=== PATIENT | male | born 1980 ===

== ENCOUNTER 2020-04-22 19:19 | Emergency (ER) | payer SELFPAY ==
[2020-04-22 19:25] VITALS: BP 124/67; PULSE 113; RESP 14; TEMP 36.9; O2SAT 97; BMI 23.7
--- NOTE | 2020-04-22 19:37 | ED_ITS ---
HPI - Overdose <JACKIE Weston - Last Filed: 04/22/20 20:40> General Chief Complaint: Toxicology Problem Stated Complaint: NOT SURE MEDICATION CLINIC SENT HIM Time Seen by Provider: 04/22/20 19:31 Source: patient Mode of arrival: Ambulatory Limitations: no limitations History of Present Illness HPI Narrative: 39yo male healthy male presents emergency department for withdrawal symptoms. Patient states that he has been taking Percocet daily for an infected tooth for the past 2 months. 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 Patient states this morning he felt like his skin was crawling, reported nausea, and had a few episodes of dry heaving and diarrhea. Patient denies full fledged vomiting, abdominal pain, chest pain, shortness of breath, dizziness, vision changes, fevers, or any other concerns. Patient denies any major medical issues, reports appendectomy approximately 10 years ago. Denies taking any other medications such as blood thinners. Patient states he occasionally smokes cigarettes denies any other drug use or excessive alcohol use. Related Data Previous Rx's Medication Instructions Recorded hydroxyzine HCl 25 mg PO TID PRN #20 tab 04/22/20 ondansetron 4 mg PO Q6H PRN #20 tab 04/22/20 Allergies Allergy/AdvReac Type Severity Reaction Status Date / Time No Known Drug Allergies Allergy Verified 04/22/20 19:25 Review of Systems <JACKIE Weston - Last Filed: 04/22/20 20:40> Review of Systems Narrative: REVIEW OF SYSTEMS: GENERAL: Denies fever or chills. HENT: No head trauma, hearing loss or sore throat. EYES: No loss of vision, double vision, eye pain, or irritation. CARDIOVASCULAR: No chest pain or syncope. RESPIRATORY: No shortness of breath or cough. GASTROINTESTINAL: Reports nausea, see HPI. GENITOURINARY: No flank pain or dysuria. MUSCULOSKELETAL: No pain, weakness, or deformities. INTEGUMENTARY: No rash, lesions, or pruritus. NEURO: No numbness or tingling. Reports ?feels like my skin is crawling, see HPI. PSYCH: No behavior or mood changes. Patient History <JACKIE Weston - Last Filed: 04/22/20 20:40> Surgical History History of appendectomy (Acute) Social History Smoking Status: Current every day smoker Smoking Status: Current every day smoker alcohol intake frequency: holidays/special occasions only Substance Use Type: does not use Exam <JACKIE Weston - Last Filed: 04/22/20 20:40> Initial Vital Signs Initial Vital Signs: Vital Signs Temperature 98.4 F 04/22/20 19:25 Pulse Rate 113 H 04/22/20 19:25 Respiratory Rate 14 04/22/20 19:25 Blood Pressure 124/67 04/22/20 19:25 Pulse Oximetry 97 04/22/20 19:25 PHYSICAL EXAMINATION: GENERAL: Well groomed, alert, and cooperative. Answers questions promptly and appropriately. Vital signs noted. HENT: Normocephalic, atraumatic. Ear canals patent. Oral mucosa is pink and moist. EYES: Conjunctiva pink, sclera white, no periorbital swelling. CHEST: Normal to inspection and without deformities. CARDIOVASCULAR: S1 and S2 sounds normal. Noted tachycardia, regular rhythm, no murmurs, clicks, or bruits. No pedal edema. RESPIRATORY: Normal respiratory rate, trachea midline, airway patent. No stridor, nasal flaring or accessory muscle use. Lungs are clear in all [place] without wheeze, rhonchi, or crackles. GASTROINTESTINAL: Bowel sounds normoactive. Abdomen is soft and non-tender. No organomegaly. MUSCULOSKELETAL: Normal gait and coordination. Equal tone and mass bilaterally. EXTREMITIES: CMS intact. Moves all extremities. SKIN: Warm, dry, soft, appropriate color for ethnicity. No lesions, rashes, or wounds. NEURO: Alert and Oriented X 3. Good coordination. No ataxia, or sensory deficits, or cognitive issues. PSYCH: Appropriate affect and mood. <Bill Alonso MD - Last Filed: 04/23/20 02:39> Initial Vital Signs Initial Vital Signs: Vital Signs Temperature 98.4 F 04/22/20 19:25 Pulse Rate 113 H 04/22/20 19:25 Respiratory Rate 14 04/22/20 19:25 Blood Pressure 124/67 04/22/20 19:25 Pulse Oximetry 97 04/22/20 19:25 Course <JACKIE Weston - Last Filed: 04/22/20 20:40> Course Course Narrative: Patient was given hydroxyzine and ondansetron or symptoms, reported he was feeling much better. Able to tolerate fluids and food. Patient reports he is ready to be discharged home. Orders Ordered: Discontinued Medications Hydroxyzine Pamoate (Vistaril) 25 mg PO NOW ONE Stop: 04/22/20 19:37 Last Admin: 04/22/20 19:43 Dose: 25 mg Documented by: BING Ondansetron HCl (Zofran Odt) 4 mg SL NOW ONE Stop: 04/22/20 19:37 Last Admin: 04/22/20 19:43 Dose: 4 mg Documented by: BING Vital Signs Vital signs: Vital Signs - 8 hr 04/22/20 19:25 04/22/20 20:28 Temperature 98.4 F Pulse Rate 113 H 93 H Respiratory Rate 14 15 Blood Pressure 124/67 121/65 Pulse Oximetry 97 99 <Bill Alonso MD - Last Filed: 04/23/20 02:39> Orders Ordered: Discontinued Medications Hydroxyzine Pamoate (Vistaril) 25 mg PO NOW ONE Stop: 04/22/20 19:37 Last Admin: 04/22/20 19:43 Dose: 25 mg Documented by: BING Ondansetron HCl (Zofran Odt) 4 mg SL NOW ONE Stop: 04/22/20 19:37 Last Admin: 04/22/20 19:43 Dose: 4 mg Documented by: BING Vital Signs Vital signs: Vital Signs - 8 hr 04/22/20 19:25 04/22/20 20:28 Temperature 98.4 F Pulse Rate 113 H 93 H Respiratory Rate 14 15 Blood Pressure 124/67 121/65 Pulse Oximetry 97 99 MDM - Overdose <JACKIE Weston - Last Filed: 04/22/20 20:40> Medical Records Attestation: I reviewed the patient's medical records. Lab Data Attestation: I reviewed the patient's lab results. MDM Narrative Medical decision making narrative: 39-year-old male presenting to the emergency department for withdrawal symptoms from taking Percocet daily for the past few months. Patient is hemodynamically stable, in no physiological distress. Reports feeling like his skin is crawling and nausea. No vomiting. Patient was given ondansetron and hydroxyzine, reported significant improvement. Able to tolerate food and fluids. Patient was discharged with prescriptions. Denies any other complaints, thus less suspicious of infection. Denies alcohol at ingestion or multiple drug ingestion. Return precautions given for new or worsening symptoms. Patient agreed to plan of care verbalized understanding. Discharge Plan Departure Patient Disposition: Home Clinical Impression: Opioid withdrawal Discharge Date/Time: 04/22/20 20:28 Instructions: DI for Opioid Addiction, DI for Prescription Opioid Use Activity Restrictions/Additional Instructions: Thank you for entrusting me with your care today. As discussed, your symptoms are most likely caused by opioid withdrawal. I have given you a prescription for nausea medication and a medication to help with the sensations that your feeling on your skin. Take these as needed over the next 5 days. Hydroxyzine can make you drowsy, do not drive when using this medication. Return emergency department for new or worsening symptoms such as uncontrollable vomiting,, chest pain, shortness of breath, or any other concerns. Prescriptions: New ondansetron 4 mg tablet,disintegrating 4 mg PO Q6H PRN (Reason: nausea and vomiting) Qty: 20 RF: 0 hydroxyzine HCl 25 mg tablet 25 mg PO TID PRN (Reason: itching) Qty: 20 RF: 0
[2020-04-22] MEDS: hydrOXYzine pamoate 25 MG CAPSULE PO (19:43)
[2020-04-22] MEDS: ONDANSETRON 4 MG ODT SL (19:43)
[2020-04-22 20:28] VITALS: BP 121/65; PULSE 93; RESP 15; O2SAT 99
--- NOTE | 2020-04-22 20:45 | PC.NURSE ---
Patient states having possible withdrawals from percocet, feels like skin is crawling, nausea, dry heaves and loose stool. Denies CP or SOB. States has been taking Percocet daily for an infected tooth for the past 2 months with last dose yesterday and PCP would not refill.
== END 2020-04-22 20:28 | disposition home or self-care (01) ==
PROVIDERS: Emergency Provider Nurse Practitioner
DX: F11.23 Opioid dependence with withdrawal (principal); R11.2 Nausea with vomiting, unspecified
CPT/HCPCS: 99283

== ENCOUNTER 2020-04-22 22:29 | Emergency (ER) | payer OTHER, SELFPAY ==
[2020-04-22 22:39] VITALS: BP 100/51; PULSE 78; RESP 24; TEMP 36.6; O2SAT 98
--- NOTE | 2020-04-23 00:20 | ED.GENADULT ---
HPI - General Adult General Chief complaint: Toxicology Problem Stated complaint: BACK FROM EARLIER NOT BETTER Time Seen by Provider: 04/23/20 00:17 Source: patient Mode of arrival: Ambulatory Limitations: no limitations History of Present Illness HPI narrative: Patient here earlier seen for opiate withdrawals. Feel better after medications given to him here. Discharged on hydroxyzine and Zofran however he missed his [employer] boat ride back to his home. He has no place to stay. Returns here because no wrist ago. Very right resumes 6:00 a.m. denies any other complaints. No new issues. Related Data Previous Rx's Medication Instructions Recorded hydroxyzine HCl 25 mg PO TID PRN #20 tab 04/22/20 ondansetron 4 mg PO Q6H PRN #20 tab 04/22/20 Allergies Allergy/AdvReac Type Severity Reaction Status Date / Time No Known Drug Allergies Allergy Verified 04/22/20 19:25 Review of Systems Review of Systems Narrative: GENERAL: Denies chills, fatigue, malaise, fever, sweats. HEENT: Denies sinus pain, ear pain, sore throat, difficulty swallowing, dizziness. Complains right lower dental pain RESPIRATORY: Denies dyspnea, cough, wheezing, hemoptysis, sputum. CARDIOVASCULAR: Denies chest pain, palpitations, orthopnea, edema, GASTROINTESTINAL: Denies nausea, vomiting, abdominal pain, diarrhea, constipation, melena. MUSCULOSKELETAL: denies weakness, joint pain, or bony pain SKIN: Denies rash, skin lesions, or other NEUROLOGIC: Denies weakness, headache PSYCHIATRIC: Has anxiety ROS Unobtainable: All systems reviewed & are unremarkable except as noted in HPI and below Patient History Surgical History History of appendectomy (Acute) Social History Smoking Status: Current every day smoker Smoking Status: Current every day smoker alcohol intake frequency: holidays/special occasions only Substance Use Type: does not use Exam Narrative Exam Narrative: GENERAL: patient appears stated age. Well-nourished, well-developed patient, in no distress, not toxic HEAD: Atraumatic. Normocephalic. ENT: There is dental caries at teeth 28, 29, 30.. No surrounding abscess or gum edema. No tongue elevation. CARDIOVASCULAR: Regular rate and rhythm without murmurs, gallops, or rubs. RESPIRATORY: Clear to auscultation. Breath sounds equal bilaterally. No wheezes, rales, or rhonchi. GASTROINTESTINAL: Abdomen soft, non-tender, nondistended. NEURO: Clear speech, awake oriented x4 Initial Vital Signs Initial Vital Signs: Vital Signs Temperature 97.9 F 04/22/20 22:39 Pulse Rate 78 04/22/20 22:39 Respiratory Rate 24 04/22/20 22:39 Blood Pressure 100/51 L 04/22/20 22:39 Pulse Oximetry 98 04/22/20 22:39 Course Course Course Narrative: pt is here bc he missed the [employer] boat. next ferry is at 6 am. he has been asking for narcotic pain medication and i offered him that i can have social media executive in the morning see him for rehab...he refused. he denies si/hi. i have given him ativan earlier to help sleep as well as hydroxizine. at 5 am he was willing to try toradol. he is not toxic. Time 6:23 a.m.. Patient has changes mind to contact [facility] for detox. We have started the process and done coronavirus screening as instructed by this center. Laboratory studies have been started. After resulted we are to call the center back and they will converse with patient by phone for screening process as well. Orders Ordered: ED Orders 04/23/20 05:26 Complete Blood Count AUTO DIFF Stat Comprehensive Metabolic Panel Stat Ethanol (ETOH) Stat 04/23/20 05:27 Urine Drug Screen, Rapid Stat Discontinued Medications Hydroxyzine Pamoate (Vistaril) 25 mg PO NOW ONE Stop: 04/23/20 00:20 Last Admin: 04/23/20 00:25 Dose: 25 mg Documented by: SHWETA Ketorolac Tromethamine (Toradol) 60 mg IM NOW ONE Stop: 04/23/20 04:43 Last Admin: 04/23/20 04:51 Dose: 60 mg Documented by: MELISA Lorazepam (Ativan) 1 mg PO NOW ONE Stop: 04/23/20 01:49 Last Admin: 04/23/20 01:52 Dose: 1 mg Documented by: ELLAFARHussein Reevaluation(s) Reevaluation #1: pt has received toradol im. not toxic Time: 05:04 Reevaluation #2: Time 6:23 a.m.. Patient has changes mind to contact [facility] for detox. We have started the process and done coronavirus screening as instructed by this center. Laboratory studies have been started. After resulted we are to call the center back and they will converse with patient by phone for screening process as well. Time: 06:24 Reevaluation #3: Time 6:30 a.m.. Patient now changes my he does not want any medical screening blood draw or detox screening. I spoke with him that we do not do detox here. Detox is voluntary. He is not suicidal. No seizures. No altered mental status Time: 06:30 Vital Signs Vital signs: Vital Signs - 8 hr 04/23/20 01:25 04/23/20 04:28 Pulse Rate 72 80 Respiratory Rate 20 18 Blood Pressure 98/49 L 140/63 Pulse Oximetry 98 100 Medical Decision Making Differential Diagnosis Differential Diagnosis: Patient here for medical screening. Medical Records Medical records reviewed: Yes I reviewed the patient's medical records. Lab Data Labs: Lab Results 04/23/20 Range/Units 05:25 COVID-19 PCR Negative (Negative) MDM Narrative Medical decision making narrative: No labs or imaging indicated at this time. Patient is here because he missed his ride on the [employer] boat. There is no other place for him to stay. i have offered social work services for pt later this morning but he has declined services to help for detox. will provide [facility]...[phone]. Please see notes above during course of stay. Patient change his mind for detoxing and screening. Refused blood draw. Discharge Plan Departure Clinical Impression: Encounter for medical screening examination Instructions: DI for Drug or Alcohol Withdrawal Activity Restrictions/Additional Instructions: Return if worse. See family doctor this week for recheck. Return if any questions or concerns. Call [facility] at phone number [phone] if you change your mind for detox. Return any time if worse or if any concerns or questions Prescriptions: No Action ondansetron 4 mg tablet,disintegrating 4 mg PO Q6H PRN (Reason: nausea and vomiting) Qty: 20 RF: 0 hydroxyzine HCl 25 mg tablet 25 mg PO TID PRN (Reason: itching) Qty: 20 RF: 0
[2020-04-23] MEDS: hydrOXYzine pamoate 25 MG CAPSULE PO (00:25)
[2020-04-23 01:25] VITALS: BP 98/49; PULSE 72; RESP 20; O2SAT 98
[2020-04-23] MEDS: LORazepam 0.5 MG TABLET 1 MG PO (01:52)
[2020-04-23 04:28] VITALS: BP 140/63; PULSE 80; RESP 18; O2SAT 100
[2020-04-23] MEDS: KETOROLAC 60 MG/2 ML VIAL IM (04:51)
--- NOTE | 2020-04-23 04:54 | PC.NURSE ---
He was medicated for c/o tooth pain after DR Sullivan was notified.
--- NOTE | 2020-04-23 05:17 | PC.NURSE ---
We contacted the [facility] in [place] for him concerning de-tox.He was given information and phone number to contact them.
[2020-04-23 07:00] LABS: COVID19 -Nasal RAPID Negative (Negative)
--- NOTE | 2020-04-23 07:18 | PC.NURSE ---
He refused a blood draw and refused vital signs since approx 4am.
== END 2020-04-23 08:31 | disposition home or self-care (01) ==
PROVIDERS: Emergency Provider Emergency Medicine
DX: F11.23 Opioid dependence with withdrawal (principal); Z11.59 Encounter for screening for other viral diseases
CPT/HCPCS: 87635; 96372; 99283; 99284; J1885